=== PATIENT | male | born 1940 | race Caucasian/White ===

== ENCOUNTER → 2018-12-02 14:52 | Outpatient (CLI) | payer MEDICARE, BC, SELFPAY | PROVIDERS: Family Provider Family Medicine; PCP Family Medicine; Visit Provider Ophthalmology | DX: Z22.322 Carrier or suspected carrier of Methicillin resistant Staphylococcus aureus (principal) | CPT/HCPCS: 87077; 87081; 87147; 87186 ==

== ENCOUNTER 2018-12-11 10:35 | Day surgery (SDC) | payer MEDICARE, BC, SELFPAY ==
--- NOTE | 2018-12-05 16:53 | PM.PREOP ---
Pre-operative Note Interval Note History & Physical reviewed/Exam performed by Physician: Yes Changes to H&P: No H&P completed within 30 days and has changed as indicated here:: MRSA Nasal swab positive at pre-op exam. No symptoms. Partner recent infection. Will give IV Vancomycin 1 gram one hour prior to incision. Patient also wants oral doxycycline 100 milligrams bid for one wek after which has been sent to his pharmacy.
--- NOTE | 2018-12-05 16:56 | P.OP_ITS ---
Operative Date/Time/Diagnoses Date of procedure: 12/11/18 Time of procedure: 14:15 Procedure & Clinicians Procedure: Preoperative diagnoses: 1. Left nuclear sclerotic and cortical cataract. 2. Previous stroke. 3. MRSA carrier. Postoperative diagnoses: 1. Cataract removed by phacoemulsification with placement of posterior chamber intraocular lens. Procedure: Phacoemulsification with posterior chamber intraocular lens implant Surgeon: Mariela Gold MD Complications: None Specimen: None Implant: ZCBOO+19.5 Blood loss: None Anesthesia: Retrobulbar with monitored standby Description of procedure: Patient presents with a complaint of decreased v ision due to cataract which is affecting activities of daily living. The patient wants surgery to improve vision. Due to a recent MRSA infection in his partner a asymptomatic nasal swab was performed prior to surgery. This was positive for MRSA and he is a carrier. Therefore he is given 1 g IV vancomycin 1 hour prior to procedure. He is planned placed on topical tobramycin drops for 3 days prior to the procedure. and he will be given 1 week of oral doxycycline 100 mg twice a day. his organism is sensitive to all of these and he has no active infection. He will also be maintained on tobramycin eye drops postoperatively for 10 days. He is stable to proceed with cataract surgery. The patient was taken to the operating room and given IV sedation. A retrobulbar block consisting of 6 cc of 2% xylocaine without epinephrine mixed half and half with 0.5% Marcaine with 1 cc of hyaluronidase added is placed between the medial and lateral 1/3 of the inferior orbital rim. Lid akinesia is obtain with 1% xylocaine with epinephrine infiltrated along the lid margin. The eye is manually massaged for 30 sec, prepped using Betadine solution, and draped in the usual sterile fashion. Temporal approach was made, a 1 mm side-port incision was made 90? from the proposed clear corneal incision position. Phenylephrine 1.5% mixed with 1% xylocaine 0.2 cc was placed into the anterior chamber. Viscoat followed by Cata was then placed. A 2.6 mm clear incision with a 2.6 mm blade was placed. A 360 degree capsulorrhexis style capsulotomy was then performed with a cystitome needle on a [place]alon. Hydrodelineation and hydrodissection were performed. The phacoemulsification unit is introduced, and sculpting notice used to groove the central lens. It is then removed in chopping mode. Epi nucleus is removed with epinuclear mode and irrigation aspiration was used to remove the peripheral cortex. The posterior capsule is polished. The intraocular lens is selected, inspected, power confirmed, and placed in the posterior chamber. The pupil was constricted with Miostat.. The wound was stromally hydrated and tested for leaks, there was none and it was left sutureless. Vigamox 0.1 cc was placed into the anterior chamber. Kenalog 0.2 cc was placed in the superior subconjunctival space. A drop of antibiotic and was placed and the eye was patched and shielded. The patient was stable and returned to the recovery room in excellent condition. Dictated by: Mariela Gold MD Copy to: [facility]
[2018-12-11] MEDS: PROPARACAINE 0.5% OPHTH SOL 2 DROPS EYE-OP (12:25)
[2018-12-11] MEDS: CATARACT EYE COMPOUND (10 DROPS/SYRINGE) 3 DROPS EYE-OP (12:27)
[2018-12-11 12:29] VITALS: BP 114/69; PULSE 60; RESP 16; TEMP 36.8; O2SAT 97; BMI 31.2
[2018-12-11] MEDS: VANCOMYCIN 1,000 MG/200 ML FROZ.PIGGY 200 MG IV (12:30)
[2018-12-11] MEDS: BALANCED SALT IRRIG SOLN NO.2 15 ML IRR (14:00)
[2018-12-11] MEDS: CHONDROIDTIN/SOD HYALURONATE 1.05 ML SYRINGE INTRAOCULA (14:00)
[2018-12-11] MEDS: HYALURONATE SODIUM 10 MG/ML SYRINGE INJ (14:00)
[2018-12-11] MEDS: MOXIFLOXACIN OPHTH DROPS 3 ML BOTTLE 2 DROPS INJ (14:01)
[2018-12-11] MEDS: LIDOCAINE 1% W/EPI INJ 20 ML INJ (14:01)
[2018-12-11] MEDS: NEOMYCIN/POLY/DEX OPHTH OINT 1 APPLIC EYE-LEFT (14:01)
[2018-12-11] MEDS: PHENYLEPHRINE/LIDOCAINE VIAL (OR) 0.2 ML EYE-OP (14:02)
[2018-12-11] MEDS: OFLOXACIN 0.3% OPHTH 5 ML 2 DROPS EYE-LEFT (14:02)
[2018-12-11] MEDS: BALANCED SALT IRRIG SOLN NO.2 500 ML, EPINEPHrine 1 MG IRR (14:03)
[2018-12-11] MEDS: TRIAMCINOLONE 50 MG/5 ML VIAL INJ (14:03)
[2018-12-11] MEDS: LIDOCAINE 2% 4 ML, BUPIVACAINE 0.5% (PF) 4 ML, HYALURONIDASE 150 UNIT INJ (14:04)
[2018-12-11 14:39] VITALS: BP 138/82; PULSE 57; RESP 12; TEMP 36.8; O2SAT 99
== END 2018-12-11 15:10 | disposition home or self-care (01) ==
LOC: OR 10:38
PROVIDERS: Family Provider Family Medicine; PCP Family Medicine; Visit Provider Ophthalmology
DX: H25.812 Combined forms of age-related cataract, left eye (principal); I10 Essential (primary) hypertension; Z86.73 Personal history of transient ischemic attack (TIA), and cerebral infarction without residual deficits; Z22.322 Carrier or suspected carrier of Methicillin resistant Staphylococcus aureus
CPT/HCPCS: J0171; J2704; J3301; J3370; J3470

== ENCOUNTER 2019-04-11 19:04 | Emergency (ER) | payer MEDICARE, BC, SELFPAY ==
--- NOTE | 2019-04-11 19:10 | ED.UPPEXIN ---
HPI - Extremity Injury (Upper) General Chief Complaint: Extremity Injury, Upper Stated Complaint: RIGHT HAND CUT FINGERS Time Seen by Provider: 04/11/19 19:10 Source: patient Mode of arrival: ambulatory Limitations: no limitations History of Present Illness HPI narrative: The patient injured his right hand using a table saw at home several hours prior to arrival. He lives in the [facility], several hours were required to reach the ER. He is right-hand dominant. He was using the table saw at his home. He had finished a cut, and turned off the saw. However the bladed not cease to rotate. He sustained lacerations to the distal volar right 2nd, 3rd and 4th digits. He has not had significant discomfort. He has lacerations that are still bleeding several hours later. He has no weakness or dizziness. He has no numbness. He takes aspirin, no other blood thinners. He has no bleeding issues. There were no other injuries. Related Data Home Medications Medication Instructions Recorded Confirmed benazepril 40 mg PO QDAY #0 09/13/16 12/11/18 hydrochlorothiazide 25 mg PO QDAY #0 09/13/16 12/11/18 Previous Rx's Medication Instructions Recorded acetaminophen 325 - 650 mg PO Q6HP PRN #30 tab 09/14/16 atorvastatin 40 mg PO HS #30 tab 09/14/16 sulfamethoxazole-trimethoprim 1 tab PO BID 7 Days #14 tab 04/11/19 Allergies Allergy/AdvReac Type Severity Reaction Status Date / Time No Known Drug Allergies Allergy Verified 04/11/19 19:27 Review of Systems Constitutional Denies lethargy and Denies malaise Musculoskeletal Denies numbness Comments: Multiple rate hand injuries as noted in HPI. Integumentary/Breasts Comments: Right hand lacerations. No other injuries or rash. Neurologic Denies confusion, Denies focal weakness and Denies numbness Psychiatric Denies anxiety and Denies confusion [facility] Medical History (Updated 04/12/19 @ 02:02 by Francisco Tejeda MD) Brain TIA (Acute) Hyperlipidemia (Acute) Hypertension (Acute) No significant past surgical history (Acute) Social History Smoking Status: Never smoker Social History Smoking Status: Never smoker Exam Initial Vital Signs Initial Vital Signs: Vital Signs Temperature 97.9 F 04/11/19 19:27 Pulse Rate 75 04/11/19 19:27 Respiratory Rate 18 04/11/19 19:27 Blood Pressure 163/81 H 04/11/19 19:27 Pulse Oximetry 98 04/11/19 19:27 Const General: cooperative and well developed Nutritional Appearance: well nourished Orientation: alert, awake, oriented x3 and not confused Skin General: no rashes or lesions noted, No jaundice and No petechiae Other: Lacerations to the right distal volar index, middle and ring fingers. The laceration to the index finger is about 2 cm, ambulating to the radial side of the nail bed, raising the flap to the distal radial side of the finger. There is active bleeding, no foreign bodies. The laceration to the mid finger is irregular, jagged, 2 cm laceration across the distal volar finger. Again, no foreign bodies. The laceration to the ring finger is a 1.5 cm laceration across the distal volar distal finger. There is an avulsion of part of the skin. There are no foreign bodies. Capillary refill and two-point distinction is normal to all injured digits. There is no evidence of bony deformity. Nail beds are not involved. Procedures Laceration Repair Laceration 1: Site: hand (Distal a right index finger) Side (If applicable): right Size (cm): 2 Description: flap, irregular and clean Depth: simple, single layer Local Anesthetic: lidocaine 1% Amount of anesthesia used (mL): 2 Pre-repair: wound explored, irrigated extensively and deep structures intact Skin layer closed with: nylon Size (cm): 5-0 Number of sutures: 5 Technique: simple, interrupted Laceration 2: Site: hand (Volar distal middle finger) Side (If applicable): right Size (cm): 2 Description: flap, irregular and clean Local Anesthetic: lidocaine 1% Amount of anesthesia used (mL): 2 Pre-repair: wound explored and irrigated extensively Skin layer closed with: nylon Size (cm): 5-0 Number of sutures: 8 Technique: simple, interrupted Laceration 3: Site: hand (Volar distal ring finger) Side (If applicable): right Size (cm): 1.5 Description: flap, irregular and clean Depth: simple, single layer Local Anesthetic: lidocaine 1% Amount of anesthesia used (mL): 2 Pre-repair: wound explored, irrigated extensively and deep structures intact Skin layer closed with: nylon Size (cm): 5-0 Number of sutures: 6 Course Course Narrative: Following wound irrigation sutures, wounds were cleansed by the patient's nurse. Tube gauze bandages were applied to all 3. Patient tolerated procedure well. Orders Ordered: ED Orders 04/11/19 19:18 XR hand RT min 3V Stat Discontinued Medications Hydrocodone Bitart/Acetaminophen (Vicodin Prepack) 1 bottle MISC SEEINSTR ONE Stop: 04/11/19 21:14 Last Admin: 04/11/19 21:22 Dose: 1 bottle Diphtheria/Tetanus/Acell Pertussis (Adacel) 0.5 ml IM .ONCE ONE Stop: 04/11/19 19:24 Last Admin: 04/11/19 19:58 Dose: 0.5 ml Lidocaine HCl (Lidocaine 1% Mdv) 1 ml INJ INTRA-OP ONE Stop: 04/11/19 19:22 Last Admin: 04/11/19 19:32 Dose: Not Given Lidocaine HCl (Xylocaine 1%) 10 ml INJ NOW ONE Stop: 04/11/19 19:27 Last Admin: 04/11/19 20:03 Dose: 10 ml Lidocaine HCl (Xylocaine 1% (Pf)) 6 ml INJ NOW ONE Stop: 04/11/19 19:32 Last Admin: 04/11/19 20:04 Dose: Not Given Trimethoprim/Sulfamethoxazole (Bactrim Ds) 1 tab PO NOW ONE Stop: 04/11/19 20:40 Last Admin: 04/11/19 20:42 Dose: 1 tab Vital Signs - 8 hr 04/11/19 19:27 04/11/19 20:30 Temperature 97.9 F Pulse Rate 75 78 Respiratory Rate 18 16 Blood Pressure 163/81 H Blood Pressure [Left Arm] 133/80 Pulse Oximetry 98 94 MDM - Extremity Injury (Upper) Imaging Data Right hand XR:: Radiologist's impression: [address] [address] XRay Report Signed Patient: Garth Baltazar#: [id number] : 1940Acct:[id number] Age/Sex: 78 / MDate of Service: 04/11/19 Loc: ED Accession Number: [id number] Procedure: XR hand RT min 3V Ordering Provider: Francisco Tejeda MD PROCEDURE: XR HAND RT MIN 3V INDICATIONS: Table saw injury. Right 2nd,3rd a 4th finger injuries TECHNIQUE: 3 views of the hand(s) acquired. COMPARISON: None. FINDINGS: Bones: No fractures or dislocations but there is soft tissue distortion in near reported trauma distal right second third and fourth digits. No foreign body seen. Moderate degenerative osteoarthritis except at the base of the first proximal phalanx where degenerative changes are moderately severe. Carpal bones are normally aligned. No suspicious bony lesions. Soft tissues: No suspicious soft tissue calcifications. IMPRESSION: Soft tissue injury as without fracture or foreign body as discussed, involving the distal second third and fourth digits. 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 Dictated by: Ernesto Tapia M.D. on 04/11/2019 at 20:01 Approved by: Ernesto Tapia M.D. on 04/11/2019 at 20:01 Discharge Plan Departure Patient Disposition: Home Clinical Impression: Laceration of right index finger Qualifiers: Encounter type: initial encounter Damage to nail status: without damage Foreign body presence: without foreign body Qualified Code(s): S61.210A - Laceration without foreign body of right index finger without damage to nail, initial encounter Laceration of right middle finger Qualifiers: Encounter type: initial encounter Damage to nail status: without damage Foreign body presence: without foreign body Qualified Code(s): S61.212A - Laceration without foreign body of right middle finger without damage to nail, initial encounter Laceration of right ring finger Qualifiers: Encounter type: initial encounter Damage to nail status: without damage Foreign body presence: without foreign body Qualified Code(s): S61.214A - Laceration without foreign body of right ring finger without damage to nail, initial encounter Discharge Date/Time: 04/11/19 21:15 Interventions: ED Discharge Assessment Last Done: 04/11/19 21:15 Instructions: DI for Laceration Repair -- Finger Activity Restrictions/Additional Instructions: Take Tylenol or Advil as needed for pain. [place] every 6 hours as needed added pain control. Bactrim DS 2 times daily for 7 days. The current bandage should be changed Sunday. Follow up with her doctor, return here if necessary. Follow-up with your doctor for suture removal in 10 days. Again, return here if necessary. Prescriptions: New sulfamethoxazole-trimethoprim 800-160 mg tablet 1 tab PO BID 7 Days Qty: 14 RF: 0 No Action hydrochlorothiazide 25 MG tablet 25 mg PO QDAY Qty: 0 RF: 0 benazepril 40 MG tablet 40 mg PO QDAY Qty: 0 RF: 0 atorvastatin 40 MG tablet 40 mg PO HS Qty: 30 RF: 0 acetaminophen 325 MG tablet 325 - 650 mg PO Q6HP PRNQty: 30 RF: 0 Referrals: Ivan Silva MD [Primary Care Provider] -
--- NOTE | 2019-04-11 19:18 | DI.RAD.S_ITS ---
PROCEDURE: XR HAND RT MIN 3V INDICATIONS: Table saw injury. Right 2nd,3rd a 4th finger injuries TECHNIQUE: 3 views of the hand(s) acquired. COMPARISON: None. FINDINGS: Bones: No fractures or dislocations but there is soft tissue distortion in near reported trauma distal right second third and fourth digits. No foreign body seen. Moderate degenerative osteoarthritis except at the base of the first proximal phalanx where degenerative changes are moderately severe. Carpal bones are normally aligned. No suspicious bony lesions. Soft tissues: No suspicious soft tissue calcifications. IMPRESSION: Soft tissue injury as without fracture or foreign body as discussed, involving the distal second third and fourth digits. 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 Dictated by: Ernesto Tapia M.D. on 04/11/2019 at 20:01 Approved by: Ernesto Tapia M.D. on 04/11/2019 at 20:01
[2019-04-11 19:27] VITALS: BP 163/81; PULSE 75; RESP 18; TEMP 36.6; O2SAT 98; BMI 28.7
[2019-04-11] MEDS: TET,DIPH,PERTUSS(ACELL),VAC/PF 0.5 ML SYRINGE IM (19:58)
[2019-04-11] MEDS: LIDOCAINE 1% 20 ML INJ 10 ML INJ (20:03)
[2019-04-11 20:30] VITALS: BP 133/80; PULSE 78; RESP 16; O2SAT 94
[2019-04-11] MEDS: TRIMETH/SULFA 160/800 (DS) TABLET 1 TAB PO (20:42)
[2019-04-11] MEDS: HYDROCODONE/ACET 5/325 PREPACK 1 BOTTLE MISC (21:22)
--- NOTE | 2019-04-12 05:48 | PC.NURSE ---
PT has laceration to right hand 2nd, 3rd, and 4th digits from using a table saw at home at 1500. PT lives in the [facility], and took ferry to ER pt had hand bandaged upon arrival in [facility] that had a moderate amount of blood on it. Pt takes aspirin and denies other blood thinners. Denies dizziness or weakness. He has no numbness and CMS intact. Pt states not upto date on tetanus.
== END 2019-04-11 21:15 | disposition home or self-care (01) ==
PROVIDERS: Emergency Provider Emergency Medicine; Family Provider Family Medicine; PCP Family Medicine
DX: S61.210A Laceration without foreign body of right index finger without damage to nail, initial encounter (principal); S61.212A Laceration without foreign body of right middle finger without damage to nail, initial encounter; S61.214A Laceration without foreign body of right ring finger without damage to nail, initial encounter; Z23 Encounter for immunization
CPT/HCPCS: 12002; 73130; 90471; 99282; 99283; 90715